=== PATIENT | female | born 1945 | race Caucasian/White ===

== ENCOUNTER → 2020-07-21 | Outpatient (CLI) | payer MEDICARE ==
--- NOTE | 2020-07-21 09:59 | XR ---
EXAMINATION TYPE: XR chest 2V DATE OF EXAM: 07/21/2020 COMPARISON: NONE HISTORY: Shortness of breath TECHNIQUE: Frontal and lateral views of the chest are obtained. FINDINGS: Scattered senescent parenchymal changes noted. Hyperinflation compatible with COPD. No evidence for infiltrate. No evidence for atelectasis. Heart size is stable. Mediastinal structures are stable and grossly unremarkable. No evidence for hilar prominence. Degenerative changes dorsal spine. IMPRESSION: 1. No evidence for acute pulmonary disease.
== END | disposition home or self-care (01) ==
LOC: RADXRMAIN 09:18
PROVIDERS: ATTEND Otolaryngology
DX: R05 Cough (principal)
CPT/HCPCS: 71046

== ENCOUNTER → 2021-07-13 | Outpatient (CLI) | payer MEDICARE ==
[2021-07-13 08:58] LABS: Basophils % (A) 1 %; Eosinophils # (A) 0.2 k/uL (0-0.7); Eosinophils % (A) 4 %; HCT 35.5 % (34.0-46.0); HGB 11.8 gm/dL (11.4-16.0); Lymphocytes # (A) 1.2 k/uL (1.0-4.8); Lymphocytes % (A) 26 %; MCH 28.6 pg (25.0-35.0); MCHC 33.4 g/dL (31.0-37.0); MCV 85.5 fL (80.0-100.0); Mean Platelet Volume 9.8; Monocytes # (A) 0.3 k/uL (0-1.0); Monocytes % (A) 6 %; Neutrophils # (A) 2.6 k/uL (1.3-7.7); Neutrophils % (A) 60 %; Platelet Count 219 k/uL (150-450); RBC 4.15 m/uL (3.80-5.40); RDW 14.6 % (11.5-15.5); WBC 4.4 k/uL (3.8-10.6)
--- NOTE | 2021-07-13 09:19 | XR ---
EXAMINATION TYPE: XR Hip Complete LT DATE OF EXAM: 07/13/2021 CLINICAL HISTORY: Pain after injury 5 weeks ago. TECHNIQUE: AP and frogleg views of the left hip are obtained. COMPARISON: None. FINDINGS: There is no acute fracture/dislocation evident in the left hip. Mild axial joint space los s. Mild to moderate acetabular spurring. There is 5 mm ossific density near the superior lateral kameron tabulum could reflect intra-articular loose body. Left-sided pelvic phleboliths are present. IMPRESSION: As above.
--- NOTE | 2021-07-13 09:21 | XR ---
EXAMINATION TYPE: XR lumbosacral spine min 4V DATE OF EXAM: 07/13/2021 CLINICAL HISTORY: Pain after bending injury 5 weeks ago. TECHNIQUE: Frontal, lateral, and oblique images of the lumbar spine are obtained. COMPARISON: None FINDINGS: There are 5 lumbar type vertebral bodies identified. There is dextroconvex scoliosis cente red at L2-L3 level. Moderate disc space narrowing and spurring with endplate sclerosis at L1-L2 level . Mild disc space narrowing and spurring at L2-L3 level. Moderate disc space narrowing at L5-S1 level . Multilevel spinous process hypertrophy. Facet arthropathy lower lumbar spine. Oblique images appear within normal limits. Overlying soft tissue is unremarkable. IMPRESSION: As above.
[2021-07-13 20:38] LABS: African American GFR (CKD) 98.2 (60.0-200.0); Albumin 4.3 g/dL (3.80-4.90); Albumin/Globulin Ratio 1.59 (1.60-3.17); Anion Gap 10.1 mmol/L (4.00-12.00); BUN/Creat Ratio 17.14 Ratio (12.00-20.00); Calcium 9.1 mg/dL (8.7-10.3); Carbon Dioxide 24.9 mmol/L (21.6-31.8); Chol/HDL Ratio 3.15; Globulin 2.7 g/dL (1.6-3.3); LDL Cholesterol,Calculated 106.6 mg/dL (0.0-131.0); Non-African American GFR(CKD) 84.8 (60.0-200.0); Potassium 3.6 mmol/L (3.5-5.5); Total Bilirubin 0.4 mg/dL (0.2-1.2); VLDL Calculation 20.4 mg/dL (5.00-40.00)
== END | disposition home or self-care (01) ==
LOC: LABWHC1 08:26
PROVIDERS: ATTEND Internal Medicine
DX: D72.819 Decreased white blood cell count, unspecified (principal); M51.36 Other intervertebral disc degeneration, lumbar region; M41.86 Other forms of scoliosis, lumbar region; M47.816 Spondylosis without myelopathy or radiculopathy, lumbar region; M76.892 Other specified enthesopathies of left lower limb, excluding foot; X58.XXXA Exposure to other specified factors, initial encounter
CPT/HCPCS: 36415; 72110; 73502; 80053; 80061; 82607; 85025

== ENCOUNTER → 2021-09-18 | Outpatient (CLI) | payer MEDICARE ==
--- NOTE | 2021-09-18 16:00 | CT ---
EXAMINATION TYPE: CT thoracic spine wo con DATE OF EXAM: 09/18/2021 COMPARISON: None HISTORY: Thoracic spine pain CT DLP: 1517.62 mGycm Automated exposure control for dose reduction was used. Helical imaging through the thoracic spine. FINDINGS: Thoracic vertebral bodies show preserved height. There is multilevel spondylosis present. Bone minera lization remarkable for sclerotic focus in T9, inferior aspect of T7, possible bone islands. No signi ficant spinal stenosis is evident. Facet arthropathy changes are present at the lower thoracic spine. Some mild loss of disc height present at intervertebral levels the midthoracic level. There is a gen tle spinal curvature. There is a cystic focus of the upper pole the right kidney measuring approximately 2.5 cm. Coronary a rtery calcifications are present. Some ill-defined increased density present at the posterior left yeny ng apex, axial image 20 could be postinflammatory. 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 POSSIBLE BONE ISLANDS, FOLLOW-UP COULD BE PERFORMED TO ASSESS FOR STABILITY OR CONSIDER BONE SCAN CLINICALLY. Indetermina te possible inflammatory focus left upper lobe, consider follow-up. Additional findings above.
--- NOTE | 2021-09-18 16:06 | CT ---
EXAMINATION TYPE: CT lumbar spine wo con DATE OF EXAM: 09/18/2021 COMPARISON: Plain film 07/13/2021 HISTORY: Lumbago (lumbar pain) CT DLP: 816.56 mGycm Automated exposure control for dose reduction was used. An unenhanced CT of the lumbar spine was performed. Bone and soft tissue window settings are submitt ed as well as coronal and sagittal reconstructions. FINDINGS: There is a slight spinal curvature. Multilevel spondylosis is present. Loss of disc height is greates t at L5-S1 and L1-2 with associated vacuum phenomenon. Vacuum phenomenon also present L4-5. Lumbar ve rtebral bodies show preserved height. Bone mineralization may be reduced. Hemangioma present in the L 4 vertebral body L1-L2: Posterior extension endplate disc complex causes anterior mass effect on the thecal sac. Circu mferential extension endplate disc complex encroaches somewhat on the neural foramen greater on the r ight. L2-L3: Posterior extension endplate disc complex causes minimal anterior mass effect on the thecal sa c. No significant spinal stenosis. Circumferential extension endplate disc complex encroaches somewha t on the left neural foramen. Minimal retrolisthesis grade 1 L2 on L3. L3-L4: Posterior broad-based disc bulge is present causing anterior mass effect on the thecal sac. Th ere is some mild spinal stenosis. There is facet arthropathy change present. No significant foraminal encroachment. L4-L5: Posterior disc herniation is present. There is lucency present within the spinal canal posteri or to the L4 vertebral body likely related to the disc herniation, there is anterior mass effect on t he thecal sac. Suspect some resulting spinal stenosis, circumferential extension of endplate disc com plex encroaches somewhat on the foramina greater on the left than on the right. There is facet arthro natasha change present. L5-S1: Posterior extension endplate disc complex may contact the anterior thecal sac. There is some f acet arthropathy change. No significant spinal stenosis. Circumferential extension of endplate disc c omplex encroaches on the neural foramina. IMPRESSION: Degenerative disc disease, facet arthropathy, foraminal encroachment, spinal stenosis most significan t at L4-5. MRI may be of benefit.
== END | disposition home or self-care (01) ==
LOC: RADCTMAIN 13:43
PROVIDERS: ATTEND Orthopaedic Surgery
DX: M47.814 Spondylosis without myelopathy or radiculopathy, thoracic region (principal); M51.36 Other intervertebral disc degeneration, lumbar region; M48.061 Spinal stenosis, lumbar region without neurogenic claudication; M47.816 Spondylosis without myelopathy or radiculopathy, lumbar region
CPT/HCPCS: 72128; 72131

== ENCOUNTER → 2021-10-04 | Outpatient (CLI) | payer MEDICARE ==
[~2021-10-04] MED LIST: SODIUM CHLORIDE 0.9% 500 ML 500 ML in EMPTY BAG 1 BAG IV PRN; ZOLEDRONIC ACID 5 MG in SODIUM CHLORIDE 0.9% 100 ML IV NR
[2021-10-04 13:41] VITALS: BP 182/67; PULSE 100; RESP 16; TEMP 98.1
== END ==
LOC: PROCWHC3 12:49
PROVIDERS: ATTEND Internal Medicine
DX: M81.0 Age-related osteoporosis without current pathological fracture (principal)
CPT/HCPCS: 96365; J3489

== ENCOUNTER → 2023-02-13 | Outpatient (CLI) | payer MEDICARE ==
[2023-02-13 12:09] VITALS: BP 147/71; PULSE 76; RESP 15; TEMP 97.8
== END ==
LOC: PROCWHC3 11:57
PROVIDERS: ATTEND Internal Medicine
DX: M81.0 Age-related osteoporosis without current pathological fracture (principal)
CPT/HCPCS: 96365; J3489

== ENCOUNTER → 2024-03-09 | Outpatient (CLI) | payer MEDICARE ==
[2024-03-09 16:16] LABS: ALT 24 U/L (8-44); AST 25 U/L (13-35); Albumin 4.4 g/dL (3.8-4.9); Albumin/Globulin Ratio 1.63 Ratio (1.60-3.17); Alkaline Phosphatase 112 U/L (41-126); Calcium 10.3 mg/dL (8.7-10.3); Carbon Dioxide 27.6 mmol/L (21.6-31.8); Chloride 102 mmol/L (96-109); Globulin 2.7 g/dL (1.6-3.3); Glucose 93 mg/dL (70-110); Potassium 4.1 mmol/L (3.5-5.5); Sodium 140 mmol/L (135-145); Total Bilirubin 0.3 mg/dL (0.3-1.2); Total Protein 7.1 g/dL (6.2-8.2)
[2024-03-09 17:26] LABS: HCT 39.5 % (37.2-46.3); HGB 13.4 g/dL (12.0-15.0); MCH 31.7 pg (27.0-32.0); MCHC 33.9 g/dL (32.0-37.0); MCV 93.4 FL (80.0-97.0); Mean Platelet Volume 12.4 FL (9.5-12.2); NRBC Per 100 WBC 0 X 10*3/uL (0.00-0.01); Platelet Count 229 X 10*3/uL (140-440); RBC 4.23 X 10*6/uL (4.10-5.20); WBC 4.62 X 10*3/uL (4.50-10.00)
== END | disposition home or self-care (01) ==
LOC: LABWHC1 11:19
PROVIDERS: ATTEND Internal Medicine
DX: I10 Essential (primary) hypertension (principal); M16.9 Osteoarthritis of hip, unspecified; Z96.641 Presence of right artificial hip joint; D59.12 Cold autoimmune hemolytic anemia; D50.0 Iron deficiency anemia secondary to blood loss (chronic); T84.59XA Infection and inflammatory reaction due to other internal joint prosthesis, initial encounter
CPT/HCPCS: 36415; 80053; 85027